=== PATIENT | female | born 1945 | race Caucasian/White ===

== ENCOUNTER 2016-09-25 20:43 | Inpatient (IN) | payer OTHER, MEDICARE ==
[~2016-09-25] VITALS: Ht 167.6 cm; Wt 72.6 kg
[2016-09-25] MEDS: PANTOPRAZOLE 40 MG TABLET.DR PO SCH (07:30)
[~2016-09-25 20:43] MED LIST: ALPR0.5T8 PO; DONE10TA44 PO; ESCI20TA PO; MEMA28CA PO; QUET25TA PO; RISP0.5T20 PO; TRAZ-144 PO
--- NOTE | 2016-09-25 20:45 | NUR ---
PT FAMILY STATES PT IS HERE FOR SUTURE REMOVAL OF STITCHES ON THE BACK OF HEAD. PLACED ON MONITOR. AWAITING MD ORDER.
--- NOTE | 2016-09-25 21:15 | NUR ---
AUTOMOBILE DEALER AT BEDSIDE BLOOD SAMPLE COLLECTED
--- NOTE | 2016-09-25 21:20 | NUR ---
LAC #20 IV ACCESS.
[2016-09-25 21:24] LABS: BASOPHILS # (AUTO) 0.1 /CMM (0.0-0.2); BASOPHILS % (AUTO) 0.6 % (0.0-2.0); EOSINOPHILS # (AUTO) 0.1 /CMM (0.0-0.7); EOSINOPHILS % (AUTO) 0.7 % (0.0-6.0); HEMATOCRIT 35 % (33-45); HEMOGLOBIN 11.1 g/dL (11.5-14.8); LYMPHOCYTES # (AUTO) 2.2 /CMM (0.8-4.8); LYMPHOCYTES % (AUTO) 21.8 % (20.0-44.0); MEAN CORPUSCULAR HEMOGLOBIN 25 PG (26.0-33.0); MEAN CORPUSCULAR HGB CONC 32 g/dl (31.0-36.0); MEAN CORPUSCULAR VOLUME 78 fL (82-100); MONOCYTES # (AUTO) 0.8 /CMM (0.1-1.30); MONOCYTES % (AUTO) 8.4 % (2.0-12.0); NEUTROPHILS # (AUTO) 6.8 /CMM (1.8-8.9); NEUTROPHILS % (AUTO) 68.5 % (43.0-81.0); PLATELET COUNT (AUTO) 388 /CMM (150-450); RDW COEFFICIENT OF VARIATION 13.4 (11.5-15.0)
[2016-09-25] MEDS ORDERED: IV NS 0.9% 1,000 ML BAG IV ONE (21:30)
--- NOTE | 2016-09-25 21:30 | NUR ---
PT TAKEN TO CT VIA JOSSELINE
[2016-09-25 21:38] LABS: CALCIUM, SERUM 8.8 mg/dL (8.5-10.1); CREATININE 0.7 mg/dL (0.6-1.3); POTASSIUM 3.7 mmol/L (3.5-5.1)
[2016-09-25 21:42] LABS: INR 1.09 (0.87-1.13); PROTHROMBIN TIME 11.4 SECS (9.5-12.7)
[2016-09-25] MEDS ORDERED: IV NS 0.9% 1,000 ML ONE (21:42)
[2016-09-25] MEDS ORDERED: IV SET PRIMARY PUMP SET 1 EA INFUS.SET MC ONE (21:42)
[2016-09-25 21:43] LABS: ALBUMIN 2.9 g/dL (3.4-5.0); BILIRUBIN,TOTAL 0.3 mg/dL (0.2-1.0); TOTAL PROTEIN, SERUM 7.4 g/dL (6.4-8.2)
--- NOTE | 2016-09-25 22:30 | NUR ---
URINE SAMPLE COLLECTED SENT TO LAB
[2016-09-25 22:52] LABS: APPEARANCE,URINE CLOUDY (CLEAR); BILIRUBIN,URINE NEGATIVE (NEGATIVE); BLOOD, URINE NEGATIVE Ery/uL (NEGATIVE); COLOR,URINE YELLOW (YELLOW); KETONES,URINE NEGATIVE (NEGATIVE); LEUKOCYTE ESTERASE ,URINE NEGATIVE (NEGATIVE); NITRITE, URINE NEGATIVE (NEGATIVE); PH,URINE 6.5 (5.0-8.0); PROTEIN,URINE NEGATIVE (NEGATIVE); UGLUCOSE NEGATIVE (NEGATIVE); UROBILINOGEN,URINE 0.2 EU/dL (0.2)
[2016-09-25 23:00] LABS: RBC,URINE 0-2 /HPF (0-2); WBC,URINE 0-2 /HPF (0-3)
[2016-09-25 23:01] LABS: ADD URINE CULTURE NO; BACTERIA,URINE None seen /HPF (None Seen); MUCUS,URINE Many /LPF (None Seen); SQUAMOUS EPITHELIAL CELL,UR Few /HPF (None Seen); URINE AMORPHOUS URATE Many /HPF (None Seen)
--- NOTE | 2016-09-25 23:27 | NUR ---
GAVE REPORT TO JASMINE WALDROP ADMITTING
--- NOTE | 2016-09-25 23:28 | NUR ---
assisted MD with conscious sedation. Pt on 2 L NC saturation 99%.
[2016-09-25] MEDS ORDERED: MAG HYDROX/AL HYDROX/SIMETH 30 ML UDC PO PRN (23:30)
[2016-09-25] MEDS ORDERED: Z GUARD REMEDY 2 OZ OINT TP PRN (23:30)
[2016-09-25] MEDS ORDERED: ZOLPIDEM TARTRATE 5 MG TABLET PO PRN (23:30)
[2016-09-25] MEDS ORDERED: ALPRAZOLAM 0.5 MG TABLET PO PRN (23:30)
[2016-09-25] MEDS ORDERED: MAGNESIUM HYDROXIDE 30 ML UDC PO PRN (23:30)
[2016-09-25] MEDS ORDERED: ONDANSETRON HCL/PF 4 MG/2 ML VIAL IVP PRN (23:30)
[2016-09-25] MEDS ORDERED: ACETAMINOPHEN 325 MG TABLET PO PRN (23:30)
[2016-09-25] MEDS ORDERED: FENTANYL PF 100MCG/2ML AMPUL IVP ONE (23:30)
[2016-09-25] MEDS ORDERED: HYDROCODONE/APAP 5/325MG 1 EACH TABLET PO PRN (23:30)
[2016-09-25] MEDS ORDERED: MIDAZOLAM HCL 2 MG/2ML VIAL IVP ONE (23:30)
[2016-09-25] MEDS ORDERED: FENTANYL PF 100MCG/2ML AMPUL ONE (23:41)
[2016-09-25] MEDS ORDERED: MIDAZOLAM HCL 2 MG/2ML VIAL ONE (23:41)
[2016-09-26] VITALS (7 sets, daily range): BP systolic 99–125; BP diastolic 50–81
--- NOTE | 2016-09-26 00:23 | NUR ---
GAVE REPORT TO [facility] FOR CHRISTOPHER
--- NOTE | 2016-09-26 00:50 | NUR ---
RN NOTES: ADMITTED FROM ER,VIA GURNIKITA,ACCOMPANIED BY RN,DX:ENCEPHALOPATHY,TELE MONITORING SINUS RHYTHM-92(REGULAR);PATIENT IS DROWSY AND SLEEPY SHE RECEIVED SEDATION MEDICATION FROM ER FOR SUTURE REMOVAL ON THE OCCIPITAL AREA,PER FAMILY AT BED SIDE PATIENT HAS DEMENTIA,SHE IS HIGH RISK FOR FALL, TURKISH SPEAKING ONLY;FALL, SAFETY AND ASPIRATION PRECAUTION OBSERVED,BODY ASSESSMENT DONE:POSSIBLE DTI ON THE SACROCOCCYX AREA(BLACKISH DISCOLORATION) AND REDNESS ON THE RIGHT AND LEFT GROIN FOR WOUND CONSULT TREATMENT.RECEIVED 1 LITER OF NS IN ER,IV CANNULA ON LEFT AC G#20,PATENT AND INTACT.BED LOW AND LOCKED, ALARM ON AT ALL TIME,KEPT ON CLOSE VISUAL CHECK.
--- NOTE | 2016-09-26 01:00 | NUR ---
RN NOTES: MORNING CARE DONE, CLEAN AND CHANGE,MAKE COMFORTABLE IN BED, ASLEEP.CALL LIGHT WITHIN EASY REACHED, SR UPX3.
[2016-09-26 06:36] LABS: BASOPHILS % (AUTO) 0.5 % (0.0-2.0); EOSINOPHILS # (AUTO) 0.2 /CMM (0.0-0.7); EOSINOPHILS % (AUTO) 2.3 % (0.0-6.0); HEMATOCRIT 30 % (33-45); HEMOGLOBIN 10.1 g/dL (11.5-14.8); LYMPHOCYTES # (AUTO) 2.3 /CMM (0.8-4.8); LYMPHOCYTES % (AUTO) 33.5 % (20.0-44.0); MEAN CORPUSCULAR HEMOGLOBIN 26 PG (26.0-33.0); MEAN CORPUSCULAR HGB CONC 33 g/dl (31.0-36.0); MEAN CORPUSCULAR VOLUME 79 fL (82-100); MONOCYTES # (AUTO) 0.6 /CMM (0.1-1.30); MONOCYTES % (AUTO) 9.1 % (2.0-12.0); NEUTROPHILS # (AUTO) 3.7 /CMM (1.8-8.9); NEUTROPHILS % (AUTO) 54.6 % (43.0-81.0); PLATELET COUNT (AUTO) 302 /CMM (150-450); RDW COEFFICIENT OF VARIATION 14.4 (11.5-15.0); RED BLOOD CELL COUNT(AUTO) 3.84 MIL/uL (4.0-5.2); WHITE BLOOD COUNT (AUTO) 6.8 K/uL (4.3-11.0)
--- NOTE | 2016-09-26 06:50 | NUR ---
RN NOTES: ASLEEP IN THE NIGHT, NO SEIZURE NOTED IN THE ENTIRE SHIFT,NO PAIN OR DISCOMFORT, NO SIGN OF SOB OR RESPIRATORY DISTRESS, STILL ON SINUS RHYTHM RATE-87.KEPT MONITORED, FALL AND SAFETY PRECAUTION OBSERVED,CALL LIGHT WITHIN REACH.
[2016-09-26 06:54] LABS: ALBUMIN 2.5 g/dL (3.4-5.0); BILIRUBIN,TOTAL 0.3 mg/dL (0.2-1.0); CALCIUM, SERUM 8.6 mg/dL (8.5-10.1); CREATININE 0.7 mg/dL (0.6-1.3); MAGNESIUM 2.1 mg/dL (1.8-2.4); PHOSPHORUS 4.3 mg/dL (2.5-4.9); POTASSIUM 3.7 mmol/L (3.5-5.1); TOTAL PROTEIN, SERUM 6.5 g/dL (6.4-8.2)
[2016-09-26 06:59] LABS: THYROID STIMULATING HORMONE 0.918 uIU/mL (0.358-3.74)
--- NOTE | 2016-09-26 07:25 | NUR ---
phosphoric acid operator initial notes Received patient in bed, asleep, head of bed elevated, no SOB or distress noted, on 02 @ 2lpm via NC and tolerated well. IV intact and patent. Daughter Indra at bedside for constant monitoring due to patient is fall risk. On tele monitor SR heart rate of 80. Kept patient clean and comfortable in bed, call light with in patient reach, will continue to monitor accordingly.
[2016-09-26] MEDS: PANTOPRAZOLE 40 MG TABLET.DR PO SCH (07:30)
[2016-09-26] MEDS ORDERED: TRAZODONE 50 MG TABLET PO SCH (09:00)
[2016-09-26] MEDS ORDERED: DONEPEZIL 5 MG TABLET PO SCH (09:00)
[2016-09-26] MEDS ORDERED: MEMANTINE HCL 5 MG TABLET PO SCH (09:00)
[2016-09-26] MEDS: ESCITALOPRAM OXALATE (10 MG) 10 MG TABLET PO SCH (09:28)
[2016-09-26] MEDS ORDERED: IV SET PRIMARY PUMP SET 1 EA INFUS.SET MC ONE (10:21)
[2016-09-26] MEDS: IV NS 0.9% 1,000 ML IV PRN (10:42)
[2016-09-26 13:15] LABS: CSF GLUCOSE 66 mg/dL (40-70); CSF PROTEIN 46.5 mg/dL (15-45)
[2016-09-26 13:18] LABS: CSF APPEARANCE CLEAR (CLEAR); CSF COLOR COLORLESS (COLORLESS)
[2016-09-26 13:19] LABS: CSF WHITE BLOOD CELL COUNT 2 /cumm (0-5)
--- NOTE | 2016-09-26 15:06 | NUR ---
TEXTED DR. HOUGH FOR MRI APPROVAL
[2016-09-26] MEDS: QUETIAPINE FUMARATE 25 MG TABLET PO SCH (17:08)
[2016-09-26] MEDS ORDERED: risperiDONE 1 MG TABLET PO SCH (18:00)
--- NOTE | 2016-09-26 19:20 | NUR ---
MS RN NOTE RECEIVED PATIENT FROM DAY SHIFT, PATIENT IS ALERT AND ORIENTEDX1-2, CONFUSED AT TIMES, FAMILY AT BEDSIDE. NPO STATUS FOR OBSERVATION, IV ON LEFT AC IS PATENT AND INTACT, NS IS RUNNING. WAITING FOR MRI AND LUMBAR PUNCTURE RESULT. SRX2, BED IN LOW POSITION, CALL LIGHT WITHIN REACH, WILL CONTINUE TO MONITOR PATIENT.
--- NOTE | 2016-09-26 19:20 | NUR ---
ms rn closing notes All needs provided, attended, and anticipated. Kept patient clean and comfortable in bed, call light with in patient reach, will continue to monitor accordingly. Endorsed to next shift RN to continue care.
--- NOTE | 2016-09-26 20:10 | NUR ---
MS RN NOTE PER FAMILY MEMBERS, PATIENT COMPLAINS OF GENERALIZED PAIN AT THIS TIME. FAMILY DID NOT WANT TO GIVE STRONG PAIN MED. COMFORT MEASURE PROVIDED; HOT PACK AND WARM BLANKET.
--- NOTE | 2016-09-27 01:00 | NUR ---
MS RN NOTE GOT TORADOL 30MG IVP Q8H PRN FOR PAIN FROM DR. WALDROP PER PATIENT'S FAMILY REQUEST IN CASE PATIENT NEEDS IT.
[2016-09-27] MEDS ORDERED: KETOROLAC TROMETHAMINE INJ 30 MG/ML VIAL IV PRN (01:30)
[2016-09-27] MEDS: IV NS 0.9% 1,000 ML IV PRN (05:50)
--- NOTE | 2016-09-27 06:47 | NUR ---
MS RN NOTE PATIENT IS RESTING ON BED COMFORTABLY WITH HER DAUGHTER AT BED SIDE, NO ACUTE DISTRESS NOTED DURING THE CERAMIC MOLD DESIGNER. IV ON LEFT AC IS PATENT AND INTACT, FLUID IS RUNNING. WILL ENDORSE TO DAY SHIFT NURSE FOR CHRISTOPHER.
[2016-09-27 07:11] LABS: BASOPHILS % (AUTO) 0.5 % (0.0-2.0); EOSINOPHILS # (AUTO) 0.1 /CMM (0.0-0.7); EOSINOPHILS % (AUTO) 1.7 % (0.0-6.0); HEMATOCRIT 31 % (33-45); HEMOGLOBIN 10.1 g/dL (11.5-14.8); LYMPHOCYTES # (AUTO) 1.6 /CMM (0.8-4.8); LYMPHOCYTES % (AUTO) 25.1 % (20.0-44.0); MEAN CORPUSCULAR HEMOGLOBIN 26 PG (26.0-33.0); MEAN CORPUSCULAR HGB CONC 33 g/dl (31.0-36.0); MEAN CORPUSCULAR VOLUME 79 fL (82-100); MONOCYTES # (AUTO) 0.6 /CMM (0.1-1.30); MONOCYTES % (AUTO) 8.7 % (2.0-12.0); NEUTROPHILS # (AUTO) 4.2 /CMM (1.8-8.9); PLATELET COUNT (AUTO) 299 /CMM (150-450); RDW COEFFICIENT OF VARIATION 14.4 (11.5-15.0); RED BLOOD CELL COUNT(AUTO) 3.86 MIL/uL (4.0-5.2); WHITE BLOOD COUNT (AUTO) 6.5 K/uL (4.3-11.0)
--- NOTE | 2016-09-27 07:25 | NUR ---
RN OPEN NOTES RECEIVED REPORT FROM COMPOSITE SCIENCE TEACHER NURSE. WILL CONTINUE TO MONITOR AND ASSESS PATIENT CONDITION
[2016-09-27] MEDS: PANTOPRAZOLE 40 MG TABLET.DR PO SCH (07:30)
[2016-09-27 07:32] LABS: CALCIUM, SERUM 8.4 mg/dL (8.5-10.1); CREATININE 0.5 mg/dL (0.6-1.3); POTASSIUM 3.5 mmol/L (3.5-5.1)
[2016-09-27 08:00] VITALS: BP 126/74
[2016-09-27] MEDS: ESCITALOPRAM OXALATE (10 MG) 10 MG TABLET PO SCH (08:15)
--- NOTE | 2016-09-27 08:16 | NUR ---
PATIENT'S DAUGHTER REFUSED ALL MEDS TO BE GIVEN. SPOKE WITH LUIS TRIMMING DEPARTMENT BLOCKER REGARDING PATIENT NPO STATUS, DUE TO PATIENT BEING LETHARGIC ASPIRATION PRECAUTION. WILL FOLLOW UP WITH JUSTINE TRIMMING DEPARTMENT BLOCKER REGARDING CONTINUUM OF CARE
[2016-09-27] MEDS ORDERED: IV SET PRIMARY PUMP SET 1 EA INFUS.SET MC ONE (11:27)
[2016-09-27] MEDS: IV D5/ 0.9% NACL 1,000 ML IV SCH (11:37)
--- NOTE | 2016-09-27 11:37 | NUR ---
WOUND CARE CONSULT: PT PRESENTS WITH DEEP TISSUE INJURY IN EVOLUTION PRESENT ON ADMISSION TO SACRAL AREA. RECOMMENDATIONS MADE FOR WOUND CARE AND SKIN PROTECTION. DISCUSSED WITH NURSING STAFF. PT TO BE TURNED AND REPOSITIONED EVERY 2 HRS PT CONDITION PERMITS, HEELS FLOATED. LIZZETTE ISOFLEX LOW AIRLOSS BED TO BE PLACED WHEN AVAILABLE. PT ON COMFORT GEL MATTRESS. ALL SKIN PROTECTION MEASURES IN PLACE. MD IN AGREEMENT WITH PLAN OF CARE. Addendum: 09/27/16 at 1139 by SUMIT FLYNN WNDNU Amended: Links added.
[2016-09-27] MEDS ORDERED: HYDROGEL DRESSING 90 GM TUBE TP PRN (12:00)
[2016-09-27 16:00] VITALS: BP 94/33
--- NOTE | 2016-09-27 16:30 | NUR ---
EEG AT BEDSIDE
[2016-09-27] MEDS: HYDROGEL DRESSING 90 GM TUBE TP SCH (17:05)
[2016-09-27] MEDS: QUETIAPINE FUMARATE 25 MG TABLET PO SCH (17:06)
--- NOTE | 2016-09-27 17:17 | NUR ---
PATIENT'S FAMILY REFUSE ALL MEDS
--- NOTE | 2016-09-27 19:25 | NUR ---
REPORT GAVE TO MOLD SHEET CLEANER NURSE
--- NOTE | 2016-09-27 19:36 | NUR ---
MS RN NOTE RECEIVED PATIENT FROM DAY SHIFT, PATIENT IS ALERT AND ORIENTEDX1, CONFUSED AT TIMES, AND LOOKS COMFORTABLE. NO S/S OF RESPIRATORY DISTRESS OR PAIN PRESENT, IV ON LEFT AC IS PATENT AND INTACT, D5NS IS RUNNING. SRX2, BED IN LOW POSITION, CALL LIGHT WITHIN REACH, WILL CONTINUE TO MONITOR PATIENT.
[2016-09-27 20:00] VITALS: BP 137/61
[2016-09-28] MEDS: IV D5/ 0.9% NACL 1,000 ML IV SCH ×2 (01:06→16:33)
--- NOTE | 2016-09-28 06:51 | NUR ---
MS RN NOTE PATIENT IS RESTING IN BED COMFORTABLY WITH HER DAUGHTER AT BED SIDE, NO ACUTE DISTRESS NOTED DURING THE MUSICAL THERAPIST. IV ON LEFT AC IS PATENT AND INTACT, FLUID IS RUNNING. WILL ENDORSE TO DAY SHIFT FOR CHRISTOPHER.
--- NOTE | 2016-09-28 07:47 | NUR ---
RN MS NOTES PATIENT IN BED,DAUGHTER AT BED SIDE, IN NO APPARENT DISTRESS, NO SOB, NO S/S OF PAIN NOTED. IV LINE PATIENT NO S/S OF INFILTRATION NOTED. ALL NEEDS MET, KEPT CLEAN AND DRY.
[2016-09-28 08:00] VITALS: BP 103/62
[2016-09-28] MEDS: ESCITALOPRAM OXALATE (10 MG) 10 MG TABLET PO SCH (09:00)
[2016-09-28] MEDS: HYDROGEL DRESSING 90 GM TUBE TP SCH (12:08)
[2016-09-28] MEDS: PANTOPRAZOLE 40 MG TABLET.DR PO SCH (12:09)
[2016-09-28] MEDS ORDERED: SECONDARY IV SET 1 EA INFUS.SET MC ONE (14:10)
--- NOTE | 2016-09-28 14:34 | NUR ---
RN MS NOTES PATIENT IN BED, IN NO APPARENT DISTRESS, DENIES PAIN DENIES SOB. RECEIVED DISCHARGE ORDERS, JUSTINE WELSH DISCUSSED PLAN WITH FAMILY, THEY AGREE WITH PLAN. LEXAPRO HELD PER DAUGHTERS REQUEST, EDUCATION PROVIDED, STILL REFUSED. PATIENT ADVANCE TO MECHANICAL SOFT DIET AFTER SWALLOW EVAL. PATIENT TOLERATED DIET WELL. ALL NEEDS MET, KEPT CLEAN AND DRY.
[2016-09-28 16:00] VITALS: BP 112/42
[2016-09-28 16:06] VITALS: BP 112/47
[2016-09-28] MEDS: QUETIAPINE FUMARATE 25 MG TABLET PO SCH (18:00)
--- NOTE | 2016-09-28 18:31 | NUR ---
RN MS NOTES PT IN BED, AWAKE, VERBALLY RESPONSIVE, NOT IN DISTRESS, NO COMPLAINT OF PAIN, DAUGHTER DAKOTAH AT BEDSIDE, IV FLUIDS INFUSING WELL, SEEN BY PHYSICAL THERAPIST, TOLERATED EXERCISES WELL, CALL LIGHT WITHIN REACH, PM CARE RENDERED, PT'S FAMILY REFUSED SEROQUEL AT 1800, PT CALMLY RESTING IN BED, KEPT CLEAN, DRY AND COMFORTABLE.
[2016-09-28] MEDS ORDERED: GADOVERSETAMIDE 5 MMOL/10 ML VIAL IJ ONE (18:37)
[2016-09-28] MEDS ORDERED: GADOVERSETAMIDE 2.5 MMOL/5 ML VIAL IJ ONE (18:37)
--- NOTE | 2016-09-28 19:30 | NUR ---
MED / SUPERVISOR REAL ESTATE OFFICE NOTE, RECEIVED PATIENT AWAKE AND IN BED, NO S/S OR COMPLAINTS OF PAIN AT THIS TIME. PATIENT IS DISPLAYING NO S/S OF APPARENT DISTRESS AT THIS TIME. PATIENT BREATHING IS UNLABORED WITH EQUAL RISE AND FALL OF THE CHEST. PATIENT IS ALERT AND ORIENTED X 1 ON ROOM AIR WITH A SPO2 98%. IVF D5 NS @ 75ML /HR INFUSING WELL INTO LEFT AC 20 GAUGE THAT IS INTACT, PATENT, AND FLUSHING WELL WITH NO S/S OF INFILTRATION. PATIENT ASSISTED WITH TURNING AND REPOSITIONING Q2HR AND PRN FOR COMFORT AND CIRCULATION. PATIENT HAS NO NEEDS AT THIS TIME. PATIENT EDUCATED ON THE USE OF THE CALL LIGHT. PATIENT BED SIDE RAILS UP X2 FOR SAFETY, BED IS LOCKED AND LOW WILL CONTINUE TO MONITOR AND MAINTAIN SAFETY.
[2016-09-28 20:00] VITALS: BP 145/90
[2016-09-29] MEDS: IV D5/ 0.9% NACL 1,000 ML IV SCH ×2 (02:25→17:02)
--- NOTE | 2016-09-29 06:11 | NUR ---
MED / MUSCULOSKELETAL PHYSIOTHERAPIST NOTE, PATIENT AWAKE AND IN BED, NO S/S OR COMPLAINTS OF PAIN AT THIS TIME. PATIENT IS DISPLAYING NO S/S OF APPARENT DISTRESS AT THIS TIME. PATIENT BREATHING IS UNLABORED WITH EQUAL RISE AND FALL OF THE CHEST. PATIENT IS ALERT AND ORIENTED X 1 ON ROOM AIR WITH A SPO2 98%. IVF D5 NS @ 75ML /HR INFUSING WELL INTO LEFT AC 20 GAUGE THAT IS INTACT, PATENT, AND FLUSHING WELL WITH NO S/S OF INFILTRATION. PATIENT ASSISTED WITH TURNING AND REPOSITIONING Q2HR AND PRN FOR COMFORT AND CIRCULATION. ALL PATIENT NEEDS ANTICIPATED AND MET. PATIENT KEPT CLEAN, DRY, AND COMFORTABLE THROUGH OUT THE SHIFT. PATIENT BED SIDE RAILS UP X2 FOR SAFETY, BED IS LOCKED AND LOW WILL ENDORSE TO AM SHIFT NURSE FOR CONTINUATION OF CARE.
[2016-09-29 07:54] VITALS: BP 122/77
[2016-09-29 08:00] VITALS: BP 122/77
[2016-09-29 08:10] LABS: *WEST NILE VIRUS IgG, CSF Negative (Negative)
--- NOTE | 2016-09-29 08:22 | NUR ---
RN Notes On bed still sleeping but easily arousable. Daughter at the bedside. NO facial grimacing noted. Not in any form of distress. On RA saturating at 98% with no SOB. With ongoing IVF of D5 ns at 75 cc/hr infusing well.
[2016-09-29] MEDS: PANTOPRAZOLE 40 MG TABLET.DR PO SCH (08:42)
[2016-09-29] MEDS: ESCITALOPRAM OXALATE (10 MG) 10 MG TABLET PO SCH (08:42)
[2016-09-29] MEDS: HYDROGEL DRESSING 90 GM TUBE TP SCH (08:50)
--- NOTE | 2016-09-29 08:51 | NUR ---
RN Notes Protonix tab given. Daughter refused lexapro for patient as she said patient's neurologist discontinue it and only to be given as needed.
[2016-09-29 10:28] LABS: *WEST NILE VIRUS IgM, CSF Negative (Negative)
[2016-09-29 16:00] VITALS: BP 114/53
[2016-09-29 16:15] VITALS: BP 114/53
[2016-09-29] MEDS: QUETIAPINE FUMARATE 25 MG TABLET PO SCH ×2 (17:02→18:00)
--- NOTE | 2016-09-29 19:46 | NUR ---
RN Notes Discharge instruction given on home medication and follow up with primary care physician in 1 week after discharge. Reviewed with daughters current med list and agreed to it. IV access on left ac removed and secured site with dressing. final body check done with picture documentation attached to chart.ELECTRIC POWER LINE EXAMINER Philippe at bedside with patient and clarify concerns of daughters. For shredder picker to [facility]. Endorsed to caustic cresylate shift superintendent nurse Michael for cont of care.
--- NOTE | 2016-09-29 19:55 | NUR ---
rn note discharge report given to jeannie thapa at [facility]. ambulance has arrived. discharge instructions and paperwork reviewed and signed with patient family. pt has no s/s of any distress at this time. iv d/c. vss stable. pictures documented.
--- NOTE | 2016-09-29 20:00 | NUR ---
rn note pt left via ambulance with all belongings to [facility]. no distress ntoed.
== END 2016-09-29 20:00 | DRG 58 ==
LOC: ER 20:43 → MEDSG2 23:12 → MED 09-26 00:34 → TELE 09-26 01:20 → MED 09-26 09:08
PROVIDERS: ADMIT Internal Medicine; ATTEND Internal Medicine
DX: G91.2 (Idiopathic) normal pressure hydrocephalus (principal); G93.40 Encephalopathy, unspecified; E44.0 Moderate protein-calorie malnutrition; I11.9 Hypertensive heart disease without heart failure; G30.9 Alzheimer's disease, unspecified; F02.80 Dementia in other diseases classified elsewhere, unspecified severity, without behavioral disturbance, psychotic disturbance, mood disturbance, and anxiety; E86.0 Dehydration; R73.03 Prediabetes; D50.9 Iron deficiency anemia, unspecified; R73.9 Hyperglycemia, unspecified; R26.9 Unspecified abnormalities of gait and mobility; F32.9 Major depressive disorder, single episode, unspecified; F05 Delirium due to known physiological condition; T50.905A Adverse effect of unspecified drugs, medicaments and biological substances, initial encounter; R47.01 Aphasia
CPT/HCPCS: 36415; 70450-TC; 70553-TC; 80048-TC; 80053-TC; 80061-TC; 81000-TC; 82728-TC; 83540-TC; 83735-TC; 84100-TC; 84443-TC; 84484-TC; 85025-TC; 85730-TC; 86694; 86788; 86789; 87070-TC; 87081-TC; 89051-TC; 92611-TC; 95819-TC; 97001-TC; 97116-TC; 97530-TC; A4606; A6248; A9579; J2250; J3010; J7030; J7042; Z7610